=== PATIENT | female | born 1985 | race American Indian/Alaskan Native ===

== ENCOUNTER 2019-04-13 18:42 | Emergency (ER) | payer SELFPAY ==
[2019-04-13 19:07] VITALS: BP 127/76
--- NOTE | 2019-04-13 19:08 | Event Note ---
ED Screening Note Date of service: 04/13/19 Time: 19:05 ED Screening Note: This is a 33 y.o. F. that presents to the ER with pain to right 2nd toe since last night. Patient states she stumped her toe on bed frame last night. LMP 03/08/19 Pain worse with weight bearing. This initial assessment/diagnostic orders/clinical plan/treatment(s) is/are subject to change based on patients health status, clinical progression and re- assessment by fellow clinical providers in the ED. Further treatment and workup at subsequent clinical providers discretion. Patient/guardian urged not to elope from the ED as their condition may be serious if not clinically assessed and managed. Initial orders include: XR right toes
--- NOTE | 2019-04-13 20:12 | XRay Report ---
Right forefoot-3 views INDICATION: 2nd distal pain and swelling, r/o fx. COMPARISON: None. IMPRESSION: Subtle intra-articular fracture at the base of the second toe distal phalanx medially wi th mild surrounding soft tissue swelling. No malalignment. No significant DJD. Signer Name: Jadon Jeff MD Signed: 04/13/2019 8:07 PM Workstation Name: [id number]
[2019-04-13] MEDS ORDERED: IBUPROFEN PO ONE (21:07)
--- NOTE | 2019-04-13 21:42 | Emergency Department Report ---
ED General Adult HPI - General Chief complaint: Extremity Injury, Lower Stated complaint: RT TOE INJURY/PAIN Time Seen by Provider: 04/13/19 19:05 Source: patient Mode of arrival: Ambulatory Limitations: No Limitations - History of Present Illness Initial comments: This pleasant 33-year-old female presents to ED complaining of right second toe pain 1 day. Patient states that last night she accidentally stubbed her toe hard on her bed. Patient states she has had pain in the second toe since yesterday and some discoloration to the toe. Patient presents for evaluation. She denies inability to walk or problems related. Severity scale (0 -10): 0 - Related Data Previous Rx's Medication Instructions Recorded Last Taken Type Ibuprofen [Motrin 800 MG tab] 800 mg PO TID #30 tablet 04/13/19 Unknown Rx Allergies Allergy/AdvReac Type Severity Reaction Status Date / Time No Known Allergies Allergy Unverified 04/13/19 18:45 ED Review of Systems ROS: Stated complaint: RT TOE INJURY/PAIN Other details as noted in HPI Comment: All other systems reviewed and negative ED Past Medical Hx - Past Medical History Previous Medical History?: No - Surgical History Additional Surgical History: TONSIL REMOVED - Social History Smoking Status: Current Every Day Smoker Substance Use Type: None - Medications Home Medications: Home Medications Medication Instructions Recorded Confirmed Last Taken Type Ibuprofen [Motrin 800 MG tab] 800 mg PO TID #30 tablet 04/13/19 Unknown Rx ED Physical Exam - General Limitations: No Limitations General appearance: alert, in no apparent distress - Head Head exam: Present: atraumatic, normocephalic - Eye Eye exam: Present: normal appearance - ENT ENT exam: Present: mucous membranes moist - Neck Neck exam: Present: normal inspection - Respiratory Respiratory exam: Present: normal lung sounds bilaterally. Absent: respiratory distress - Cardiovascular Cardiovascular Exam: Present: regular rate, normal rhythm. Absent: systolic murmur, diastolic murmur, rubs, gallop - GI/Abdominal GI/Abdominal exam: Present: soft, normal bowel sounds - Extremities Exam Extremities exam: Present: normal inspection, full ROM, tenderness (the palpation of the second right), normal capillary refill. Absent: pedal edema, joint swelling, calf tenderness - Back Exam Back exam: Present: normal inspection - Neurological Exam Neurological exam: Present: alert, oriented X3 - Psychiatric Psychiatric exam: Present: normal affect, normal mood - Skin Skin exam: Present: warm, dry, intact, normal color. Absent: rash ED Course Vital Signs 04/13/19 19:04 Temperature 99.0 F Pulse Rate 100 H Respiratory 19 Rate Blood Pressure 127/76 [Left] O2 Sat by Pulse 99 Oximetry ED Medical Decision Making - Radiology Data Radiology results: report reviewed, image reviewed Fluoro Time In Minutes: Right forefoot-3 views INDICATION: 2nd distal pain and swelling, r/o fx. COMPARISON: None. IMPRESSION: Subtle intra-articular fracture at the base of the second toe distal phalanx medially with mild surrounding soft tissue swelling. No malalignment. No significant DJD. Signer Name: Jadon Jeff MD Signed: 04/13/2019 8:07 PM Workstation Name: [id number] Transcribed By: VENU Dictated By: Jadon Jeff MD Electronically Authenticated By: Jadon Jeff MD Signed Date/Time: 04/13/192006 - Medical Decision Making 33-year-old female presents with mild closed fracture of the second toe of the right foot. X-ray confirms his financier reported above. Plan discussed findings with the patient. Patient still was alfred taped and put in a postop shoe. Discussed with patient to follow up with orthopedic doctor within a week. Vital signs are normal patient is ambulatory Critical care attestation.: If time is entered above; I have spent that time in minutes in the direct care of this critically ill patient, excluding procedure time. ED Disposition Clinical Impression: Fracture of toe of right foot Disposition: DC-01 TO HOME OR SELFCARE Is pt being admited?: No Does the pt Need Aspirin: No Condition: Stable Instructions: Toe Fracture (ED) Additional Instructions: Make sure to follow up with the primary care physician as discussed. Take all your medications as you've been prescribed. If you have any worsening symptoms or develop new symptoms please return to ED immediately. Prescriptions: Ibuprofen [Motrin 800 MG tab] 800 mg PO TID #30 tablet Referrals: PRIMARY MD ITA [Primary Care Provider] - 3-5 Days ALTA DALEY MD [Staff Physician] - 3-5 Days [facility] [Provider Group] - 3-5 Days Forms: Work/School Release Form(ED) Time of Disposition: 21:43
== END 2019-04-13 21:50 | disposition home or self-care (01) ==
LOC: ED 18:42
DX: G56.01 Carpal tunnel syndrome, right upper limb (principal)

== ENCOUNTER 2019-07-06 16:34 | Emergency (ER) | payer SELFPAY ==
[2019-07-06 17:23] VITALS: BP 125/76
--- NOTE | 2019-07-06 17:29 | Emergency Department Report ---
Chief Complaint: Urogenital-Female Stated Complaint: INTERNAL ISSUES Time Seen by Provider: 07/06/19 17:25 - HPI History of Present Illness: 34 y o female presents with cc of odor from armpit, mouth and body x several years She states she has no pcp as of yet and doesn't know where to go to to be evaluated for this She denies fevers/chills/nausea vomiting abdominal pain or any other symptom - ROS Review of Systems: as noted in HPI - Exam Vital Signs: Vital Signs 07/06/19 17:21 Temperature 98.5 F Pulse Rate 77 Respiratory 16 Rate Blood Pressure 125/76 O2 Sat by Pulse 100 Oximetry Physical Exam: Gen: aao x 3, she was in no acute distress. MSE screening note: Focused history and physical exam performed. Due to findings the following was ordered: ED Medical Decision Making - Medical Decision Making 34-year-old female presents with constant for body odor. Discussed the patient to follow up with primary care physician. Referrals given. Discussed with the patient this is not medical emergency. Past sensory normal patient is in no acute distress ED Disposition for MSE Clinical Impression: Body odor Disposition: Z-07 MED SCREENING EXAM-LEFT Is pt being admited?: No Does the pt Need Aspirin: No Condition: Stable Additional Instructions: follow up with [facility] Referrals: [facility] [Outside] - 3-5 Days [facility] [Outside] - 3-5 Days Forms: Work/School Release Form(ED) Time of Disposition: 17:29
== END 2019-07-06 17:45 | disposition left against medical advice (07) ==
LOC: ED 16:34
DX: L74.8 Other eccrine sweat disorders (principal)